=== PATIENT | female | born 1950 | race Hispanic/Latino ===

== ENCOUNTER 2017-04-13 16:45 | Outpatient (CLI) | payer OTHER | END 2017-04-13 16:46 | disposition home or self-care (01) | LOC: BICMAMMO 16:45 | PROVIDERS: ATTEND Family Medicine | DX: Z12.31 Encounter for screening mammogram for malignant neoplasm of breast (principal); N63.20 Unspecified lump in the left breast, unspecified quadrant | CPT/HCPCS: 77063 ==

== ENCOUNTER 2017-05-07 08:00 | Outpatient (CLI) | payer OTHER | END 2017-05-07 08:01 | disposition home or self-care (01) | LOC: BICMAMMO 08:00 | PROVIDERS: ATTEND Family Medicine | DX: N63.20 Unspecified lump in the left breast, unspecified quadrant (principal) | CPT/HCPCS: G0279 ==

== ENCOUNTER 2017-05-28 07:55 | Outpatient (CLI) | payer OTHER ==
--- NOTE | 2017-05-28 09:07 | ULT ---
ULTRASOUND GALLBLADDER RIGHT UPPER QUADRANT: HISTORY: Hepatomegaly. COMPARISON: None. FINDINGS: Visualized portions of the pancreas are unremarkable. Diffuse increased hepatic echotexture. The li danii is enlarged measuring 18.2 cm. Gallbladder has been removed. The main portal vein is patent wit h antegrade flow. The common bile duct measures less than 4 mm. The right kidney measures 11 x 5.1 x 5.9 cm without mass, hydronephrosis, or abnormal calcifications. IMPRESSION: Hepatomegaly with increased hepatic echotexture suggesting steatosis. POS: [facility]
== END 2017-05-28 07:56 | disposition home or self-care (01) ==
LOC: ULT 07:55
PROVIDERS: ATTEND Internal Medicine Gastroenterology
DX: Z12.11 Encounter for screening for malignant neoplasm of colon (principal); R16.0 Hepatomegaly, not elsewhere classified; E66.3 Overweight; A04.8 Other specified bacterial intestinal infections; Z98.890 Other specified postprocedural states
CPT/HCPCS: 76705

== ENCOUNTER 2017-06-24 10:02 | Outpatient (CLI) | payer OTHER ==
[2017-06-24 10:41] LABS: Estimated GFR-MDRD - POC Greater than 90
--- NOTE | 2017-06-24 11:38 | CT ---
CT ABDOMEN AND PELVIS WITH ORAL AND IV CONTRAST: Date: 06/24/17 HISTORY: Hepatomegaly. FINDINGS: The lung bases are unremarkable. The liver demonstrates decreased echogenicity compared to the spleen consistent with fatty infiltration. No hepatic mass is seen. There are calcified granulomas in the l iver and spleen. The liver measures 21.4 cm in length. The spleen measures 9.6 cm in length. The marylou ent is post cholecystectomy. The pancreas, adrenal glands, and kidneys are normal. No free air, free fluid, or lymphadenopathy seen in the abdomen or pelvis. The small bowel loops are not abnormally dilated. Normal appearing appendix is seen. No pericolonic inflammatory changes are se en. There are vascular calcifications without evidence of aneurysmal dilatation of the abdominal aort a. There are degenerative changes in the spine. IMPRESSION: 1. Hepatomegaly. 2. Hepatic steatosis. 3. Calcified granulomas in the liver and spleen. POS: [facility]
[2017-06-24] MEDS ORDERED: Iopamidol 370 76% 100 ML VIAL ONE (16:53)
== END 2017-06-24 10:03 | disposition home or self-care (01) ==
LOC: CT 10:02
PROVIDERS: ATTEND Internal Medicine Gastroenterology
DX: R16.0 Hepatomegaly, not elsewhere classified (principal); K76.0 Fatty (change of) liver, not elsewhere classified; K75.3 Granulomatous hepatitis, not elsewhere classified; D73.89 Other diseases of spleen
CPT/HCPCS: 74177

== ENCOUNTER 2018-03-30 12:38 | Outpatient (CLI) | payer OTHER ==
--- NOTE | 2018-03-30 13:17 | RAD ---
PA AND LATERAL CHEST: History: Cough. FINDINGS: The heart size is borderline. There is elevation of the right hemidiaphragm. No focal areas of consol idation, pneumothorax, [place] pulmonary edema or pleural effusions are seen. No acute osseous abnormal ities are seen. IMPRESSION: No acute process. POS: [facility]
--- NOTE | 2018-03-30 13:18 | RAD ---
SINUSES 3 VIWS: HISTORY: Cough, bronchitis. FINDINGS/IMPRESSION: The paranasal sinuses are well aerated without air fluid levels. POS: [facility]
== END 2018-03-30 12:39 | disposition home or self-care (01) ==
LOC: BICRAD 12:38
PROVIDERS: ATTEND Family Medicine
DX: R05 Cough (principal); J40 Bronchitis, not specified as acute or chronic
CPT/HCPCS: 70220; 71046

== ENCOUNTER 2020-11-29 08:13 | Outpatient (CLI) | payer MEDICARE, MEDICAID | END 2020-11-29 08:14 | disposition home or self-care (01) | LOC: BICMAMMO 08:13 | PROVIDERS: ATTEND Family Medicine | DX: Z12.31 Encounter for screening mammogram for malignant neoplasm of breast (principal); M85.89 Other specified disorders of bone density and structure, multiple sites; Z78.0 Asymptomatic menopausal state | CPT/HCPCS: 77063; 77067; 77080 ==

== ENCOUNTER 2021-02-22 08:57 | Outpatient (CLI) | payer MEDICARE, MEDICAID | END 2021-02-22 08:58 | disposition home or self-care (01) | LOC: BICRAD 08:57 | PROVIDERS: ATTEND Family Medicine | DX: I10 Essential (primary) hypertension (principal); R06.02 Shortness of breath | CPT/HCPCS: 71045 ==

== ENCOUNTER 2022-09-23 09:49 | Outpatient (CLI) | payer OTHER, MEDICAID | END 2022-09-23 09:50 | disposition home or self-care (01) | LOC: BICMAMMO 09:49 | PROVIDERS: ATTEND Family Medicine | DX: Z12.31 Encounter for screening mammogram for malignant neoplasm of breast (principal); M85.80 Other specified disorders of bone density and structure, unspecified site | CPT/HCPCS: 77063; 77067; 77080 ==